=== PATIENT | male | born 1990 | race Caucasian/White ===

== ENCOUNTER 2019-07-11 11:00 | Emergency (ER) | payer SELFPAY ==
[2019-07-11 11:57] LABS: ABS Lymphocytes 1.2 10^3/ul (1.0-4.8); ABS Monocytes 0.2 10^3/ul (0-0.8); Eosinophil % 0.2 %; Hematocrit 39 % (42-52); Hemoglobin 13.5 g/dL (14.0-18.0); Lymphocyte % 18.7 %; Mean Corpuscular HGB Conc 35 g/dL (31-36); Mean Corpuscular Hemoglobin 29 pg (27-31); Mean Corpuscular Volume 84 fL (80-94); Mean Platelet Volume 6.8 fL (7.4-10.4); Nucleated Red Blood Cells % 0.1; Platelet Count 257 10^3/uL (150-450); Red Blood Count 4.62 10^6 /uL (4.18-5.48); Red Cell Distribution Width 13 % (10-15); White Blood Count 6.5 10^3/uL (3.5-10.8)
--- NOTE | 2019-07-11 12:23 | ED ---
HPI Diabetic - HPI Summary HPI Summary: Pt is a 28 y/o M presenting to the ED with a chief complaint of high blood sugar. Pt is not a known diabetic, but states he has been experiencing a multitude of sx for the past 6-8wks, including polydipsia, frequent urination, abd pain, vomiting, 10lb weight loss, weakness, and fatigue. Pt states his friend has a blood glucose monitor so he used it and the reading was very high. His father advised him to come here today. Pt denies any fever, chills, erythema of eyes, sore throat, CP, SOB, cough, dysuria, hematuria, myalgia, edema, rash, or dizziness. - History Of Current Complaint Chief Complaint: EDDiabeticProb Time Seen by Provider: 07/11/19 11:49 Hx Obtained From: Patient Onset/Duration: Gradual Onset, Lasting Weeks, Still Present Timing: Constant Severity Initially: Mild Severity Currently: Mild Character: Alert Aggravating: Nothing Alleviating: Nothing Associated Signs & Symptoms: Abdominal Pain, Nausea, Polydipsia, Vomiting, Weight Loss Related History: Other - no hx DM - Allergies/Home Medications Allergies/Adverse Reactions: Allergies Allergy/AdvReac Type Severity Reaction Status Date / Time No Known Allergies Allergy Verified 07/11/19 11:05 PMH/Surg Hx/FS Hx/Imm Hx Previously Healthy: Yes Endocrine/Hematology History: Denies: Hx Diabetes Cardiovascular History: Denies: Hx Hypertension Infectious Disease History: No Infectious Disease History: Denies: Traveled Outside the [place] in Last 30 Days - Family History Known Family History: Negative: Diabetes - Social History Alcohol Use: None Hx Substance Use: No Substance Use Type: Reports: None Hx Tobacco Use: No Smoking Status (MU): Never Smoked Tobacco Review of Systems Positive: Fatigue, Other - weight loss. Negative: Fever, Chills Negative: Erythema Negative: Sore Throat Negative: Chest Pain Negative: Shortness Of Breath, Cough Positive: Abdominal Pain, Vomiting, Nausea Positive: frequency. Negative: dysuria, hematuria Negative: Myalgia, Edema Negative: Rash Neurological: Negative - dizziness Positive: Weakness All Other Systems Reviewed And Are Negative: Yes Physical Exam - Summary Physical Exam Summary: Constitutional: Well-developed, Well-nourished, Alert. (-) Distressed Skin: Warm, Dry HENT: Normocephalic; Atraumatic Eyes: Conjunctiva normal Neck: Musculoskeletal ROM normal neck. (-) JVD, (-) Stridor, (-) Tracheal deviation Cardio: Rhythm regular, rate normal, Heart sounds normal; Intact distal pulses; The pedal pulses are 2+ and symmetric. Radial pulses are 2+ and symmetric. (-) Murmur Pulmonary/Chest wall: Effort normal. (-) Respiratory distress, (-) Wheezes, (-) Rales Abd: Soft, (-) tenderness, (-) Distension, (-) Guarding, (-) Rebound Musculoskeletal: (-) Edema Lymph: (-) Cervical adenopathy Neuro: Alert, Oriented x3 Psych: Mood and affect Normal Triage Information Reviewed: Yes Vital Signs On Initial Exam: Initial Vitals Temp Pulse Resp BP Pulse Ox 97.8 F 70 18 128/77 97 07/11/19 11:02 07/11/19 11:02 07/11/19 11:02 07/11/19 11:02 07/11/19 11:02 Vital Signs Reviewed: Yes Diagnostics - Vital Signs Vital Signs Temp Pulse Resp BP Pulse Ox 07/11/19 11:02 97.8 F 70 18 128/77 97 - Laboratory Lab Results: Lab Results 07/11/19 07/11/19 Range/Units 11:41 11:41 WBC 6.5 (3.5-10.8) 10^3/uL RBC 4.62 (4.18-5.48) 10^6 /uL Hgb 13.5 L (14.0-18.0) g/dL Hct 39 L (42-52) % MCV 84 (80-94) fL MCH 29 (27-31) pg MCHC 35 (31-36) g/dL RDW 13 (10-15) % Plt Count 257 (150-450) 10^3/uL MPV 6.8 L (7.4-10.4) fL Neut % (Auto) 77.2 % Lymph % (Auto) 18.7 % Stokes % (Auto) 3.3 % Eos % (Auto) 0.2 % Baso % (Auto) 0.6 % Absolute Neuts (auto) 5.0 (1.5-7.7) 10^3/ul Absolute Lymphs (auto) 1.2 (1.0-4.8) 10^3/ul Absolute Monos (auto) 0.2 (0-0.8) 10^3/ul Absolute Eos (auto) 0.0 (0-0.6) 10^3/ul Absolute Basos (auto) 0.0 (0-0.2) 10^3/ul Absolute Nucleated RBC 0.0 10^3/ul Nucleated RBC % 0.1 VBG pH 7.43 (7.32-7.43) VBG pCO2 47 (41-51) mmHg VBG pO2 < 38.0 (35-45) mmHg VBG HCO3 28.3 H (24-28) mmol/L VBG O2 Saturation 54.7 L (70-80) % VBG Base Excess 5.8 H (0.0-4.0) mmol/L Result Diagrams: 07/11/19 11:41 07/11/19 11:41 Lab Statement: Any lab studies that have been ordered have been reviewed, and results considered in the medical decision making process. Diabetic Course/Dx - Course Course Of Treatment: Pt is a 28 y/o M presenting to the ED with a chief complaint of high blood sugar. Pt is not a known diabetic, but states he has been experiencing a multitude of sx for the past 6-8wks, including polydipsia, frequent urination, abd pain, vomiting, 10lb weight loss, weakness, and fatigue. Pt states his friend has a blood glucose monitor so he used it and the reading was very high. His father advised him to come here today. Pt denies any fever, chills, erythema of eyes, sore throat, CP, SOB, cough, dysuria, hematuria , myalgia, edema, rash, or dizziness. Pt's physical exam is nml. Blood glucose is 516. I spoke with the pt about the importabnce of maintaining a diabetic diet, and how to change his diet for his diabetes. I also informed him of many end-organ effects of not treating diabetes. At this point, clinical educator is pending. He had diabetic education consult. Also I'm providing him with a paper prescription for a glucometer, test strips, and lancets. - Diagnoses Provider Diagnoses: Diabetes Discharge ED - Sign-Out/Discharge Documenting (check all that apply): Patient Departure - Discharge Plan Condition: Stable Disposition: HOME Prescriptions: Insulin GLARGINE(*) [Lantus(*)] 10 units SUBCUT DAILY #3 ml Pen Needle, Diabetic, Safety [Safety Pen Needle] 1 each MC DAILY #50 dis.needle Syringe and Needle,Insulin,1Ml [Insulin Syringe] 30 unit SUBCUT TID #100 disp.syrin Syringe-Needle,Insulin,0.5 ml [Insulin Syringes/0.5ML/27 27G X 1/2" 0.5 ml] 1 mis XX mis Patient Education Materials: Diabetes and Nutrition (ED), Diabetes and Exercise (ED) Referrals: [facility] [Outside] Additional Instructions: You have an appointment set up with Dr. Pfeiffer on Sunday, Jul.14, at 9:30am at [facility]. Return to the emergency department with any new or worsening symptoms. - Attestation Statements Document Initiated by Darriusibe: Yes Documenting Scribe: Kiki Lawrence Provider For Whom Scribe is Documenting (Include Credential): Sreedhar Palma MD. Scribe Attestation: I, Kiki Lawrence, scribed for Sreedhar Palma MD. on 07/11/19 at 1716. Status of Scribe Document: Ready
[2019-07-11 12:26] LABS: ALT 49 U/L (7-52); AST 33 U/L (13-39); Albumin 4.2 g/dL (3.2-5.2); Albumin/Globulin Ratio 1.6 (1-3); Alkaline Phosphatase 154 U/L (34-104); Anion Gap 8 mmol/L (2-11); BUN/Creatinine Ratio 34.6 (8-20); Blood Urea Nitrogen 27 mg/dL (6-24); C Reactive Protein < 1.00 mg/L (<8.01); CO2 Carbon Dioxide 30 mmol/L (22-32); Calcium 9.1 mg/dL (8.6-10.3); Chloride 91 mmol/L (101-111); EGFR African American 142.4 (>60); EGFR Non-African American 117.7 (>60); Globulin 2.6 g/dL (2-4); Potassium 3.9 mmol/L (3.5-5.0); Sodium 129 mmol/L (135-145); Total Protein 6.8 g/dL (6.4-8.9)
[2019-07-11 12:30] LABS: Glucose 516 mg/dL (70-100)
[2019-07-11 12:37] LABS: Urine Appearance Clear; Urine Bilirubin Negative (Negative); Urine Blood Negative (Negative); Urine Color Straw; Urine Glucose 3+(>=500 mg/dL) (Negative); Urine Ketones 1+ (Negative); Urine Nitrite Negative (Negative); Urine Protein Negative (Negative); Urine Specific Gravity 1.032 (1.010-1.030); Urine Urobilinogen Negative (Negative)
[2019-07-11] MEDS ORDERED: Insulin REGULAR(*) 1 UNITS UNIT SUBCUT ONE (12:42)
[2019-07-11] MEDS ORDERED: metFORMIN* 500 MG TAB PO ONE (12:45)
[2019-07-11] MEDS: NS 0.9% 1000 ML** 2,000 ML IV ONE ×2 (12:57→12:58)
[2019-07-11 17:11] LABS: Insulin 0.9 mcIU/mL (2.0-16.0)
[2019-07-11 23:09] VITALS: BP 117/78
[2019-07-17 09:46] LABS: Anti GAD 65 Antibody 1.52 nmol/L (<= 0.02)
== END 2019-07-11 18:00 | disposition home or self-care (01) ==
LOC: ED 11:00
DX: E11.9 Type 2 diabetes mellitus without complications (principal)
CPT/HCPCS: 36415; 80053; 81003; 82803; 82947; 83525; 83605; 84681; 85025; 86140; 86341; 96360; 99283; A9270-GY